=== PATIENT | male | born 1960 | race Two or more races ===

== ENCOUNTER 2023-04-01 06:02 | Day surgery (SDC) | payer OTHER ==
[~2023-04-01] VITALS: Ht 180.3 cm; Wt 98.9 kg
[~2023-04-01 06:02] MED LIST: ZESTRIL20 MG PO
[2023-04-01] MEDS ORDERED: OXYC1TAB9 PO (08:30)
== END 2023-04-01 13:50 | disposition home or self-care (01) ==
LOC: CIR.AMB 06:02
PROVIDERS: ATTEND Surgery
DX: K64.2 Third degree hemorrhoids (principal); K64.4 Residual hemorrhoidal skin tags; K64.8 Other hemorrhoids; I10 Essential (primary) hypertension; Z20.822 Contact with and (suspected) exposure to COVID-19